=== PATIENT | female | born 1975 | race Caucasian/White ===

== ENCOUNTER 2023-05-27 19:49 | Emergency (ER) | payer OTHER, BC ==
[~2023-05-27] VITALS: Ht 162.6 cm; Wt 79.8 kg
[2023-05-27 19:56] VITALS: BP_SYST 123; PULSE 88; RESP 20; TEMP 97.7; O2SAT 99
--- NOTE | 2023-05-27 20:00 | NUR ---
Patient triaged and placed in waiting room. VSS and patient appears in no acute distress at this time. Accompanied by [id number], awaiting available bed, and MD notified of need for MSE.
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
--- NOTE | 2023-05-27 21:24 | NUR ---
Patient to ER bed HB1 to gown for evaluation. Side rails up. Report given to MATTHEW ALMARAZ.
--- NOTE | 2023-05-27 21:26 | NUR ---
pt given ice pack to relieve neck pain. pt tolerating well.
[2023-05-27] MEDS ORDERED: IBUP-1969 PO (21:38)
[2023-05-27] MEDS ORDERED: CYCL10TA24 PO (21:38)
[2023-05-27] MEDS ORDERED: KETOROLAC TROMETHAMINE 30 MG VIAL IM ONE (21:45)
[2023-05-27 21:57] VITALS: BP_SYST 121; PULSE 76; RESP 16; TEMP 97.7; O2SAT 98
--- NOTE | 2023-05-27 21:57 | NUR ---
Patient given written and verbal discharge instructions and verbalizes understanding. ER MD discussed with patient the results and treatment provided. Patient in stable condition. ID arm band removed. Rx of FLEXERIL IBUPROFEN given. Patient educated on pain management and to follow up with PMD. Opportunity for questions provided and answered. Medication side effect fact sheet provided.
== END 2023-05-27 21:57 | disposition home or self-care (01) ==
LOC: SED 19:49
DX: M54.2 Cervicalgia (principal); R51.9 Headache, unspecified; Z88.2 Allergy status to sulfonamides; Z79.899 Other long term (current) drug therapy; V89.2XXA Person injured in unspecified motor-vehicle accident, traffic, initial encounter; Y93.89 Activity, other specified; Y92.89 Other specified places as the place of occurrence of the external cause; Y99.8 Other external cause status
CPT/HCPCS: 99283; 72040; 96372; J1885

== ENCOUNTER 2023-06-08 09:36 | Emergency (ER) | payer BC, OTHER ==
[~2023-06-08] VITALS: Ht 162.6 cm; Wt 80.7 kg
[~2023-06-08 09:36] MED LIST: CYCL10TA24 PO; IBUP-1969 PO
[2023-06-08 09:48] VITALS: BP_SYST 142; PULSE 85; RESP 18; TEMP 98.3; O2SAT 98
[2023-06-08] MEDS ORDERED: ACETAMINOPHEN 325 MG TABLET PO ONE (11:00)
[2023-06-08] MEDS ORDERED: ACETAMINOPHEN 325 MG TABLET ONE (11:09)
[2023-06-08 11:56] VITALS: BP_SYST 142; PULSE 85; RESP 18; TEMP 98.3; O2SAT 98
== END 2023-06-08 11:54 | disposition home or self-care (01) ==
LOC: SED 09:36
DX: S63.501A Unspecified sprain of right wrist, initial encounter (principal); Z88.2 Allergy status to sulfonamides; Z79.899 Other long term (current) drug therapy; X58.XXXA Exposure to other specified factors, initial encounter; Y93.89 Activity, other specified; Y92.89 Other specified places as the place of occurrence of the external cause; Y99.8 Other external cause status
CPT/HCPCS: 99283